=== PATIENT | male | born 1985 | race Caucasian/White ===

== ENCOUNTER 2016-05-15 14:44 | Emergency (ER) | payer OTHER ==
--- NOTE | 2016-05-15 15:43 | DIAGNOSTIC IMAGING REPORT ---
PROCEDURE: XR HAND 3 OR 4 VIEWS - RIGHT INDICATION: TRAUMA/INJURY TECHNIQUE: Three views of the right hand. COMPARISON: 10/05/2008 FINDINGS: Normal mineralization. No fractures. Interval healing of the fifth metacarpal base. Normal osseous alignment. No foreign bodies. Dystrophic ossification along the radial side of the second metacarpal head. No discrete articular space calcification. IMPRESSION: 1. Intact right hand. 2. Dystrophic soft tissue calcification along the second metacarpal head of uncertain etiology, likely post traumatic. 3. Healed fifth metacarpal base fracture.
--- NOTE | 2016-05-15 16:08 | ED NURSING NOTES ---
Clinical Report - Nurses [address] [place] [place] [address] 05/15/2016 14:44 [id number] TRI[facility] Triage time 14:58. Acuity: LEVEL 4. Chief Complaint: INJURY TO THE RIGHT INDEX FINGER (Pain and minor swelling, limited AROM. Unkown mechanism. Occured last night.). 15:00 05/15/16. SEPSIS SCREEN: Sepsis Screen. Negative (no infection suspected/documented). BIBIANA COMA SCORE: Bibiana Coma Scale: 15- eyes open spontaneously (4); best verbal response- oriented x 4 (5); best motor response- obeys commands (6). --15:03 Anoop Castellanos R.N. 14:58 05/15/16. BP: 121/70. HR: 72. RR: 16. O2 saturation: 96% on room air. Temp: 98.4 F (oral). Pain level now: 05/24. --15:03 Anoop Castellanos R.N. Weight: 61.6 kg stated. Height/Length: 66 inches Per Patient. BMI: 21.9. --15:00 Anoop Castellanos R.N. Medications None. --15:00 Anoop Castellanos R.N. Allergies NKDA. --15:00 Anoop Castellanos R.N. History Treatment FOREST PATHOLOGY ASSOCIATE PROFESSOR: None. PAST MEDICAL HX: Tetanus status: unknown. SOCIAL HX: Heavy tobacco smoker (cigarette)- less than 1 pack per day. Occasional alcohol use. No drug use. ABUSE ASSESSMENT: No report of abuse. --15:03 Anoop Castellanos R.N. PROBLEMS: Abdominal Pain. Gastritis. Alcohol Intoxication. --15:00 Anoop Castellanos R.N. ADDITIONAL SURGERIES: Adenoidectomy. Tumlor left chest wall. --15:00 Anoop Castellanos R.N. Interventions ID band on patient. To treatment room. --15:03 Anoop Castellanos R.N. PHYSICAL ASSESSMENT 15:06 05/15/16. Ambulatory to room. GENERAL / NEURO / PSYCH: Oriented X 4. Alert. Appears in no acute distress. EXTREMITIES: Limited ROM present. Capillary refill is less than 2 seconds in the extremities. Extremity pulses are within normal limits. Neuro-vascular status intact to the extremity. Right hand: tenderness and swelling (Right index finger). No deformity. SKIN: Skin intact. Skin is warm and dry. --15:06 Anoop Castellanos R.N. NURSING PROGRESS NOTES 15:06 05/15/16. Reassurance given. Two patient identifiers checked. Call light placed in reach. Bed placed in lowest position. Brakes of bed on. Patient ready for evaluation- chart flagged. --15:06 Anoop Castellanos R.N. DISPOSITION / DISCHARGE 16:20 05/15/16. Departure time: 1618. Condition at departure: unchanged and stable. No learning barriers present. Discharge instructions provided and reviewed with the patient. Reviewed medication(s). Patient verbalized understanding. Written instructions provided in Persian. The patient was discharged by the nurse practitioner. He was discharged home. He left the Emergency Department ambulatory and via private vehicle. Patient driving. --16:21 Anoop Castellanos R.N. Locked/Released at 05/15/2016 16:21 by Anoop Castellanos R.N.
--- NOTE | 2016-05-15 16:08 | ED NURSING NOTES ---
Clinical Report - Nurses [address] [place] [address] 05/15/2016 14:44 [id number] TRI[facility] Triage time 14:58. Acuity: LEVEL 4. Chief Complaint: INJURY TO THE RIGHT INDEX FINGER (Pain and minor swelling, limited AROM. Unkown mechanism. Occured last night.). 15:00 05/15/16. SEPSIS SCREEN: Sepsis Screen. Negative (no infection suspected/documented). BIBIANA COMA SCORE: Bibiana Coma Scale: 15- eyes open spontaneously (4); best verbal response- oriented x 4 (5); best motor response- obeys commands (6). --15:03 Anoop Castellanos R.N. 14:58 05/15/16. BP: 121/70. HR: 72. RR: 16. O2 saturation: 96% on room air. Temp: 98.4 F (oral). Pain level now: 05/24. --15:03 Anoop Castellanos R.N. Weight: 61.6 kg stated. Height/Length: 66 inches Per Patient. BMI: 21.9. --15:00 Anoop Castellanos R.N. Medications None. --15:00 Anoop Castellanos R.N. Allergies NKDA. --15:00 Anoop Castellanos R.N. History Treatment REPLENISHMENT ASSOCIATE: None. PAST MEDICAL HX: Tetanus status: unknown. SOCIAL HX: Heavy tobacco smoker (cigarette)- less than 1 pack per day. Occasional alcohol use. No drug use. ABUSE ASSESSMENT: No report of abuse. --15:03 Anoop Castellanos R.N. PROBLEMS: Abdominal Pain. Gastritis. Alcohol Intoxication. --15:00 Anoop Castellanos R.N. ADDITIONAL SURGERIES: Adenoidectomy. Tumlor left chest wall. --15:00 Anoop Castellanos R.N. Interventions ID band on patient. To treatment room. --15:03 Anoop Castellanos R.N. PHYSICAL ASSESSMENT 15:06 05/15/16. Ambulatory to room. GENERAL / NEURO / PSYCH: Oriented X 4. Alert. Appears in no acute distress. EXTREMITIES: Limited ROM present. Capillary refill is less than 2 seconds in the extremities. Extremity pulses are within normal limits. Neuro-vascular status intact to the extremity. Right hand: tenderness and swelling (Right index finger). No deformity. SKIN: Skin intact. Skin is warm and dry. --15:06 Anoop Castellanos R.N. NURSING PROGRESS NOTES 15:06 05/15/16. Reassurance given. Two patient identifiers checked. Call light placed in reach. Bed placed in lowest position. Brakes of bed on. Patient ready for evaluation- chart flagged. --15:06 Anoop Castellanos R.N. DISPOSITION / DISCHARGE 16:20 05/15/16. Departure time: 1618. Condition at departure: unchanged and stable. No learning barriers present. Discharge instructions provided and reviewed with the patient. Reviewed medication(s). Patient verbalized understanding. Written instructions provided in Slovak. The patient was discharged by the nurse practitioner. He was discharged home. He left the Emergency Department ambulatory and via private vehicle. Patient driving. --16:21 Anoop Castellanos R.N. Locked/Released at 05/15/2016 16:21 by Anoop Castellanos R.N.
--- NOTE | 2016-05-15 16:08 | ED ORDER SUMMARY ---
..... Patient: ANGELIC JENSEN OrderSheet [facility] VisitID: [id number] [address] [place] [address] 30y, M Registration Date/Time: 05/15/2016 ORDER SHEET Weight: 61.6 kg (stated) Allergies: NKDA GENERAL ORDERS: Hand 3 or 4V Right Urgent (15:11 05/15/2016 Jessica A.R.N.P.) (Ack 15:12 Shilpi) (16:03 Ewa) MEDICATION ORDERS: IV FLUIDS: ORDER SHEET NOTES: [Electronically signed by Anoop Castellanos R.N. (16:21 05/15/2016)] [Electronically signed by Sona BargerR.N.PKirk (16:24 05/15/2016)] [Electronically locked/signed by Anoop Castellanos R.N. (16:21 05/15/2016)]
--- NOTE | 2016-05-15 16:08 | ED ORDER SUMMARY ---
..... Patient: ANGELIC JENSEN OrderSheet [facility] VisitID: [id number] [address] [place] [address] 30y, M Registration Date/Time: 05/15/2016 ORDER SHEET Weight: 61.6 kg (stated) Allergies: NKDA GENERAL ORDERS: Hand 3 or 4V Right Urgent (15:11 05/15/2016 Jessica A.R.N.P.) (Ack 15:12 Shilpi) (16:03 Ewa) MEDICATION ORDERS: IV FLUIDS: ORDER SHEET NOTES: [Electronically signed by Anoop Castellanos R.N. (16:21 05/15/2016)] [Electronically signed by Sona BargerR.N.PKirk (16:24 05/15/2016)] [Electronically locked/signed by Anoop Castellanos R.N. (16:21 05/15/2016)]
--- NOTE | 2016-05-15 16:08 | ED CLINICAL REPORT ---
Clinical Report - Physicians/Mid Levels [facility] [address] [place] [address] 05/15/2016 14:44 [id number] Time Seen: 14:55; initial patient contact, initial documentation, patient care assumed. Arrived- By private vehicle. Historian- patient. HISTORY OF PRESENT ILLNESS Chief Complaint: Injury to the right index finger. The injury happened yesterday. Occurred at home. ( not sure what he did do to it). Patient is experiencing mild pain. Patient denies injury to the head or neck. No other injury. REVIEW OF SYSTEMS The patient has had swelling. No tingling, numbness, weakness or skin laceration. All systems otherwise negative, except as recorded above. PAST HISTORY See nurses notes. PROBLEMS: Abdominal Pain. Gastritis. Alcohol Intoxication. --15:00 Anoop Castellanos R.N. ADDITIONAL SURGERIES: Adenoidectomy. Tumlor left chest wall. --15:00 Anoop Castellanos R.N. The patient's dominant hand is the right. SOCIAL HISTORY Light tobacco smoker. Occasional alcohol use. No drug use. No recent travel. Is a local resident. FAMILY HISTORY No significant family medical history. ADDITIONAL NOTES The nursing notes have been reviewed with agreement regarding the chief complaint, HPI, ROS, PMH and patient medications and allergies. PHYSICAL EXAM Vital Signs: 05/15/2016 14:58 BP: 121/70. HR: 72. RR: 16. O2 saturation: 96%. Temp: 98.4 F. Pain level now: 10. Have been reviewed as normal and appear to be correct. Appearance: Alert. Oriented X3. No acute distress. Head: Head atraumatic. Eyes: Pupils equal, round and reactive to light. Eyes normal inspection. Respiratory: No respiratory distress. Skin: Skin warm and dry. Skin intact. Extremities: Right index finger: mild tenderness and swelling; limited movement (diminished flexion). Neurovascular intact distally. (slightly warm to touch and area around knuckle also warm, mildly swollen and tender). No erythema, laceration, abrasion, ecchymosis or puncture wound. No foreign body or deformity. No localization, subungual hematoma or amputation present. No wrist injury. No hand injury. Hand and wrist exam otherwise negative. Extremities otherwise negative. Neuro, Vascular and Tendons: Vascular status intact. Sensation intact. Motor intact. Tendon function intact. Neuro: Oriented X 3. No motor deficit. No sensory deficit. Note: isolated issue to finger. LABS, X-RAYS, AND EKG X-Rays: Right digit(s). Rt UE Digits X-ray: (IMPRESSION: 1. Intact right hand. 2. Dystrophic soft tissue calcification along the second metacarpal head of uncertain etiology, likely post traumatic. 3. Healed fifth metacarpal base fracture. Electronically Final signed by:Yolande Luu MD 05/15/2016 3:42:54 PM). The X-rays were interpreted by the radiologist and contemporaneously by me. PROGRESS AND PROCEDURES Patient counseled in person regarding the patient's stable condition, test results and diagnosis. 15:49 xrays shown. Differential Diagnosis: Other possible considerations: gout, ra, oa, cellulitis, fx, sprain, dislocation. Above considerations are based on history, physical exam, reassessment and X-Ray data. Differential diagnosis was discussed with patient. Disposition: Discharged home in good and unchanged condition (16:08). Condition: good and stable. 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 INSTRUCTIONS Warnings: GENERAL WARNINGS: Return or contact your physician immediately if your condition worsens or changes unexpectedly, if not improving as expected, or if other problems arise. Specifically return if problem worsens. Prescription Medications: Naproxen 500 mg tablets: take 1 orally every 12 hours as needed for pain. Dispense twenty (20). No refills. Colchicine 0.6 mg tablets: take 1 tablet orally every 1-2 hours as needed. Do not take more than 4mg in one day. Dispense twenty (20). No refills. Follow-up: Follow up with your doctor in about one week as needed. Call for an appointment. Summary of care provided to patient. Understanding of the discharge instructions verbalized by patient. (Electronically signed by Sona Barger A.R.NDarline 05/15/2016 16:24)
--- NOTE | 2016-05-15 16:24 | ED MAR SUMMARY ---
..... Medication Administration Record [facility] [address], [place] [id number] Patient: ANGELIC JENSEN Visit ID: [id number] 30y, M Weight: 61.6 kg Height/Length: 66 in BMI: 21.9 ALLERGIES: NKDA
--- NOTE | 2016-05-15 16:24 | ED MAR SUMMARY ---
..... Medication Administration Record [facility] [address], [place] [id number] Patient: ANGELIC JENSEN Visit ID: [id number] 30y, M Weight: 61.6 kg Height/Length: 66 in BMI: 21.9 ALLERGIES: NKDA
--- NOTE | 2016-05-15 16:24 | ED MED RECONCILIATION SUMMARY ---
Patient: ANGELIC JENSEN Medication Reconciliation Report [facility] VisitID: [id number] [address] [place] [address] 30y, M Registration Date/Time: 05/15/2016 Weight: 61.6 kg Height/Length: 66 in. BMI: 21.9 ALLERGIES: NKDA The patient's Home Medications are listed below: NONE. The source(s) of the original Home Medication information: Not obtained. The following Medications were given to the patient in the Emergency Department: None. The following Medications were prescribed to the patient: Naproxen 500 mg tablets: take 1 orally every 12 hours as needed for pain. Dispense twenty (20). No refills. -- Sona Barger A.R.N.P. Colchicine 0.6 mg tablets: take 1 tablet orally every 1-2 hours as needed. Do not take more than 4mg in one day. Dispense twenty (20). No refills. -- Sona Barger A.R.N.P.
--- NOTE | 2016-05-15 16:24 | ED MED RECONCILIATION SUMMARY ---
Patient: ANGELIC JENSEN Medication Reconciliation Report [facility] VisitID: [id number] [address] [place] [address] 30y, M Registration Date/Time: 05/15/2016 Weight: 61.6 kg Height/Length: 66 in. BMI: 21.9 ALLERGIES: NKDA The patient's Home Medications are listed below: NONE. The source(s) of the original Home Medication information: Not obtained. The following Medications were given to the patient in the Emergency Department: None. The following Medications were prescribed to the patient: Naproxen 500 mg tablets: take 1 orally every 12 hours as needed for pain. Dispense twenty (20). No refills. -- Sona Barger A.R.N.P. Colchicine 0.6 mg tablets: take 1 tablet orally every 1-2 hours as needed. Do not take more than 4mg in one day. Dispense twenty (20). No refills. -- Sona Barger A.R.N.P.
--- NOTE | 2016-05-15 16:24 | ED DISCHARGE INSTRUCTIONS ---
Patient: ANGELIC JENSEN General Instructions [facility] VisitID: [id number] [place] [address] 30y, M Registration Date/Time: 05/15/2016 Acute idiopathic gout with monarthritis involving the right hand. INSTRUCTIONS Warnings: GENERAL WARNINGS: Return or contact your physician immediately if your condition worsens or changes unexpectedly, if not improving as expected, or if other problems arise. Specifically return if problem worsens. Prescription Medications: Naproxen 500 mg tablets: take 1 orally every 12 hours as needed for pain. Dispense twenty (20). No refills. Colchicine 0.6 mg tablets: take 1 tablet orally every 1-2 hours as needed. Do not take more than 4mg in one day. Dispense twenty (20). No refills. Follow-up: Follow up with your doctor in about one week as needed. Call for an appointment. Summary of care provided to patient. Understanding of the discharge instructions verbalized by patient. ADDITIONAL INFORMATION Gout Gout or "gouty arthritis" is an inflammation of a joint due to a build-up of gout crystals in the joint fluid. This occurs when there is an excess uric acid (a normal waste product) in the body. Uric acid builds up in the body when the kidneys are unable to filter enough of it from the blood. This may occur with aging or kidney disease. Gout occurs more often in persons with obesity, diabetes, hypertension, high fats in the blood. It may be present in other family members. Alcohol and certain foods (such as shellfish and alcohol) may increase uric acid levels in the blood and cause a gout attack. Gout causes a hot, red, swollen and painful joint. If you have had one episode of gout, you are likely to have another. An acute attack of gout can be treated with anti-inflammatory and other medicine. If these attacks become frequent it may be necessary to take a daily medicine to help the kidney remove uric acid from the body. Home Care: Apply an ice pack (ice cubes in a plastic bag, wrapped in a towel) over the injured area for 20 minutes every 1-2 hours the first day for pain relief. Continue this 3-4 times a day until the pain and swelling goes away. Avoid alcohol and foods listed below (see Prevention) during a gout attack. Drink extra fluid to help flush the uric acid through your kidneys. Rest painful joints. If gout affects the joints of your foot or leg, you may want to use crutches for the first few days to keep from bearing weight on the foot or leg. Take anti-inflammatory medicine as directed. You may be prescribed Indocin (indomethacin), or [id number] drugs such as ibuprofen (Motrin, Advil) or naproxen (Naprosyn or Aleve). Tylenol will not be as effective since it is not an anti-inflammatory drug. If narcotic pain medicines have been prescribed, they should be used in addition to the anti-inflammatory drugs and only for severe pain. Avoid aspirin since this may slow down the flushing of the uric acid through your kidneys. Preventing Future Attacks: Minimize or avoid alcohol use. Excess alcohol intake can cause a gout attack. Foods high in purine form uric acid in the body and increase your risk for a gout attack. Therefore, avoid the following foods: certain seafoods (anchovies, sardines, shrimp, scallops, canales, mackerel); wild game, meat extracts and meat gravies; organ foods (kidney, liver, calf brain, sweetbreads). Avoid drinks with fructose (a type of sugar). Limit the following foods to one serving a day: red meat and pork, fish, poultry, dried beans and peas, asparagus, mushrooms, cauliflower and spinach. If you are overweight, this is a risk factor and you should talk to your doctor about a weight reduction plan. However, avoid fasting or extreme low calorie diets (less than 900 fernando/day) which will increase uric acid levels in the body. If you are diabetic or have high blood pressure, work with your doctor to achieve control of these conditions. Avoid injury to the involved joint since this can lead to a gout attack. Colchicine can be effective in stopping a gout attack. If you were given a prescription of this medicine for future use, begin it at the first sign of an attack. Colchicine may cause nausea, vomiting, diarrhea and other side effects. Follow Up with your doctor as advised or if you are not improving after three days of treatment. Get Prompt Medical Attention if any of the following occur: Fever over 100.4F (38.0C) with worsening joint pain Increasing redness around the joint Pain developing in another joint Repeated vomiting, abdominal pain, or blood in the vomit or stool (black or red color) Naproxen Sodium Oral tablet What is this medicine? NAPROXEN (na PROX en) is a non-steroidal anti-inflammatory drug (NSAID). It is used to reduce swelling and to treat pain. This medicine may be used for dental pain, headache, or painful monthly periods. It is also used for painful joint and muscular problems such as arthritis, tendinitis, bursitis, and gout. How should I use this medicine? Take this medicine by mouth with a glass of water. Follow the directions on the prescription label. Take it with food if your stomach gets upset. Try to not lie down for at least 10 minutes after you take it. Take your medicine at regular intervals. Do not take your medicine more often than directed. Long-term, continuous use may increase the risk of heart attack or stroke. A special MedGuide will be given to you by the pharmacist with each prescription and refill. Be sure to read this information carefully each time. Talk to your dinker regarding the use of this medicine in children. Special care may be needed. What side effects may I notice from receiving this medicine? Side effects that you should report to your doctor or health youth care specialist as soon as possible: black or bloody stools, blood in the urine or vomit blurred vision chest pain difficulty breathing or wheezing nausea or vomiting severe stomach pain skin rash, skin redness, blistering or peeling skin, hives, or itching slurred speech or weakness on one side of the body swelling of eyelids, throat, lips unexplained weight gain or swelling unusually weak or tired yellowing of eyes or skin Side effects that usually do not require medical attention (report to your doctor or health youth care specialist if they continue or are bothersome): constipation headache heartburn What may interact with this medicine? alcohol aspirin cidofovir diuretics lithium methotrexate other drugs for inflammation like ketorolac or prednisone pemetrexed probenecid warfarin What if I miss a dose? If you miss a dose, take it as soon as you can. If it is almost time for your next dose, take only that dose. Do not take double or extra doses. Where should I keep my medicine? Keep out of the reach of children. Store at room temperature between 15 and 30 degrees C (59 and 86 degrees F). Keep container tightly closed. Throw away any unused medicine after the expiration date. What should I tell my health care provider before I take this medicine? They need to know if you have any of these conditions: asthma cigarette smoker drink more than 3 alcohol containing drinks a day heart disease or circulation problems such as heart failure or leg edema (fluid retention) high blood pressure kidney disease liver disease stomach bleeding or ulcers an unusual or allergic reaction to naproxen, aspirin, other NSAIDs, other medicines, foods, dyes, or preservatives or trying to get breast-feeding What should I watch for while using this medicine? Tell your doctor or health youth care specialist if your pain does not get better. Talk to your doctor before taking another medicine for pain. Do not treat yourself. This medicine does not prevent heart attack or stroke. In fact, this medicine may increase the chance of a heart attack or stroke. The chance may increase with longer use of this medicine and in people who have heart disease. If you take aspirin to prevent heart attack or stroke, talk with your doctor or health youth care specialist. Do not take other medicines that contain aspirin, ibuprofen, or naproxen with this medicine. Side effects such as stomach upset, nausea, or ulcers may be more likely to occur. Many medicines available without a prescription should not be taken with this medicine. This medicine can cause ulcers and bleeding in the stomach and intestines at any time during treatment. Do not smoke cigarettes or drink alcohol. These increase irritation to your stomach and can make it more susceptible to damage from this medicine. Ulcers and bleeding can happen without warning symptoms and can cause . You may get drowsy or dizzy. Do not drive, use machinery, or do anything that needs mental alertness until you know how this medicine affects you. Do not stand or sit up quickly, especially if you are an older patient. This reduces the risk of dizzy or fainting spells. This medicine can cause you to bleed more easily. Try to avoid damage to your teeth and gums when you brush or floss your teeth. You have been given the following additional information: Gouty Arthritis Naproxen Sodium Oral tablet (Electronically signed by Sona Barger A.R.N.P. 05/15/2016 16:24)
== END 2016-05-15 16:18 | disposition home or self-care (01) ==
LOC: ED SRH 14:44
DX: M10.041 Idiopathic gout, right hand (principal); M13.141 Monoarthritis, not elsewhere classified, right hand; F17.210 Nicotine dependence, cigarettes, uncomplicated

== ENCOUNTER 2016-08-19 12:58 | Emergency (ER) | payer OTHER ==
--- NOTE | 2016-08-19 14:04 | ED ORDER SUMMARY ---
..... Patient: ANGELIC JENSEN OrderSheet [facility] VisitID: [id number] [place] [address] 31y, M Registration Date/Time: 08/19/2016 ORDER SHEET Weight: 63.5 kg (stated) Allergies: Ibuprofen GENERAL ORDERS: CBC w Diff Urgent (13:21 08/19/2016 EKoroleva P.A.-C) (Ack 13:28 KHoerner) (13:34 KHoerner) PT with INR Urgent (13:08/19/2016 EKoroleva P.A.-C) (Ack 13:28 KHoerner) (13:34 KHoerner) CMP Urgent (13:08/19/2016 EKoroleva P.A.-C) (Ack 13:28 KHoerner) (13:34 KHoerner) PTT Urgent (13:08/19/2016 EKoroleva P.A.-C) (Ack 13:28 KHoerner) (13:34 KHoerner) MEDICATION ORDERS: IV FLUIDS: ORDER SHEET NOTES: [Electronically signed by Iliana Ibarra R.N. (14:21 08/19/2016)] [Electronically signed by Margarita Spangler.A.-C (14:31 08/19/2016)] [Electronically locked/signed by Iliana Ibarra R.N. (14:21 08/19/2016)]
--- NOTE | 2016-08-19 14:04 | ED NURSING NOTES ---
Clinical Report - Nurses [facility] [address] [place] [address] 08/19/2016 13:00 [id number] TRIAGE Triage time 13:06. Acuity: LEVEL 3. Chief Complaint: RECTAL BLEED. Alert. No acute distress. BIBIANA COMA SCORE: Bibiana Coma Scale: 15- eyes open spontaneously (4); best verbal response- oriented x 4 (5); best motor response- obeys commands (6). --13:12 Iliana Ibarra R.N. 13:06 08/19/16. BP: 132/78. HR: 66. RR: 16. O2 saturation: 99% on room air. Temp: 98.1 F (oral). Pain level now: 10/24. --13:12 Iliana Ibarra R.N. Weight: 63.5 kg stated. Height/Length: 66 inches Per Patient. BMI: 22.6. --13:09 Iliana Ibarra R.N. Medications PARoxetine HCl Oral. --13:08 Iliana Ibarra R.N. Medication/allergy information source: the patient. --13:12 Iliana Ibarra R.N. Allergies Ibuprofen. --13:08 Iliana Ibarra R.N. History Arrived by private vehicle. Historian: patient. Unaccompanied. Primary physician (Flor). This started last night. ( bright red blood after using BR). SOCIAL HX: Heavy tobacco smoker- less than 1 pack per day. Occasional alcohol use. History of drug use: marijuana. FALL RISK ASSESSMENT: Fall risk assessment completed. No fall risk identified. FUNCTIONAL ASSESSMENT: Functional assessment: no impairments noted. LEARNING NEEDS ASSESSMENT: The learning needs assessment revealed no barriers. --13:12 Iliana Ibarra R.N. PROBLEMS: Rectal Bleed. Gout. Abdominal Pain. Gastritis. Immunizations. Alcohol Intoxication. --13:09 Iliana Ibarra R.N. ADDITIONAL SURGERIES: Adenoidectomy. Tumlor left chest wall. --13:09 Iliana Ibarra R.N. Assessment GENERAL / NEURO / PSYCH: Alert. Oriented X 4. Appears in no acute distress. Patient appears calm and cooperative. RESPIRATORY: Respirations not labored. SKIN: Skin is warm and dry. --13:12 Iliana Ibarra R.N. Interventions ID and allergy band on patient. To treatment room. --13:12 Iliana Ibarra R.N. PHYSICAL ASSESSMENT 13:15 08/19/16. Ambulatory to room. Patient gowned. GENERAL / NEURO / PSYCH: Alert. Oriented X 4. Appears in no acute distress. RESPIRATORY: Respirations not labored. SKIN: Skin is warm and dry. --13:15 Iliana Ibarra R.N. NURSING PROGRESS NOTES 13:16 08/19/16. Patient gowned. Head of bed elevated. Call light placed in reach. Side rails up x 1. Bed placed in lowest position. Brakes of bed on. --13:16 Iliana Ibarra R.N. Patient ID band checked. Blood samples drawn from the right antecubital space with 23g butterfly by [employer] ; labeled in presence of the patient and sent to lab: [employer] set. --13:36 Daniela Vasquez 14:10. The patient is resting quietly. Overall patient status is the same- he states feels the same. RESPIRATORY: No respiratory distress. SKIN: Skin is warm and dry. --14:18 Iliana Ibarra R.N. DISPOSITION / DISCHARGE Departure time: 1410. Condition at departure: stable. No learning barriers present. Discharge instructions provided and reviewed with the patient. Reviewed referral to a surgeon. Patient verbalized understanding. Written instructions provided in [place]. FALL RISK ASSESSMENT: Fall risk assessment completed. No fall risk identified. --14:17 Iliana Ibarra R.N. 14:15 08/19/16. BP: 136/83. HR: 61. RR: 16. O2 saturation: 95% on room air. Pain level now: 0/10. --14:17 Iliana Ibarra R.N. Locked/Released at 08/19/2016 14:21 by Iliana Ibarra R.N.
--- NOTE | 2016-08-19 14:04 | ED NURSING NOTES ---
Clinical Report - Nurses [facility] [address] [place] [address] 08/19/2016 13:00 [id number] TRI[facility] Triage time 13:06. Acuity: LEVEL 3. Chief Complaint: RECTAL BLEED. Alert. No acute distress. BIBIANA COMA SCORE: Bibiana Coma Scale: 15- eyes open spontaneously (4); best verbal response- oriented x 4 (5); best motor response- obeys commands (6). --13:12 Iliana Ibarra R.N. 13:06 08/19/16. BP: 132/78. HR: 66. RR: 16. O2 saturation: 99% on room air. Temp: 98.1 F (oral). Pain level now: 10/24. --13:12 Iliana Ibarra R.N. Weight: 63.5 kg stated. Height/Length: 66 inches Per Patient. BMI: 22.6. --13:09 Iliana Ibarra R.N. Medications PARoxetine HCl Oral. --13:08 Iliana Ibarra R.N. Medication/allergy information source: the patient. --13:12 Iliana Ibarra R.N. Allergies Ibuprofen. --13:08 Iliana Ibarra R.N. History Arrived by private vehicle. Historian: patient. Unaccompanied. Primary physician (Flor). This started last night. ( bright red blood after using BR). SOCIAL HX: Heavy tobacco smoker- less than 1 pack per day. Occasional alcohol use. History of drug use: marijuana. FALL RISK ASSESSMENT: Fall risk assessment completed. No fall risk identified. FUNCTIONAL ASSESSMENT: Functional assessment: no impairments noted. LEARNING NEEDS ASSESSMENT: The learning needs assessment revealed no barriers. --13:12 Iliana Ibarra R.N. PROBLEMS: Rectal Bleed. Gout. Abdominal Pain. Gastritis. Immunizations. Alcohol Intoxication. --13:09 Iliana Ibarra R.N. ADDITIONAL SURGERIES: Adenoidectomy. Tumlor left chest wall. --13:09 Iliana Ibarra R.N. Assessment GENERAL / NEURO / PSYCH: Alert. Oriented X 4. Appears in no acute distress. Patient appears calm and cooperative. RESPIRATORY: Respirations not labored. SKIN: Skin is warm and dry. --13:12 Iliana Ibarra R.N. Interventions ID and allergy band on patient. To treatment room. --13:12 Iliana Ibarra R.N. PHYSICAL ASSESSMENT 13:15 08/19/16. Ambulatory to room. Patient gowned. GENERAL / NEURO / PSYCH: Alert. Oriented X 4. Appears in no acute distress. RESPIRATORY: Respirations not labored. SKIN: Skin is warm and dry. --13:15 Iliana Ibarra R.N. NURSING PROGRESS NOTES 13:16 08/19/16. Patient gowned. Head of bed elevated. Call light placed in reach. Side rails up x 1. Bed placed in lowest position. Brakes of bed on. --13:16 Iliana Ibarra R.N. Patient ID band checked. Blood samples drawn from the right antecubital space with 23g butterfly by [employer] ; labeled in presence of the patient and sent to lab: Currently set. --13:36 Daniela Vasquez 14:10. The patient is resting quietly. Overall patient status is the same- he states feels the same. RESPIRATORY: No respiratory distress. SKIN: Skin is warm and dry. --14:18 Iliana Ibarra R.N. DISPOSITION / DISCHARGE Departure time: 1410. Condition at departure: stable. No learning barriers present. Discharge instructions provided and reviewed with the patient. Reviewed referral to a surgeon. Patient verbalized understanding. Written instructions provided in [place]. FALL RISK ASSESSMENT: Fall risk assessment completed. No fall risk identified. --14:17 Iliana Ibarra R.N. 14:15 08/19/16. BP: 136/83. HR: 61. RR: 16. O2 saturation: 95% on room air. Pain level now: 0/10. --14:17 Iliana Ibarra R.N. Locked/Released at 08/19/2016 14:21 by Iliana Ibarra R.N.
--- NOTE | 2016-08-19 14:04 | ED CLINICAL REPORT ---
Clinical Report - Physicians/Mid Levels [facility] [address] [place] [address] 08/19/2016 13:00 Patient: ANGELIC JENSEN Time Seen: 1300Jul 2016. Arrived- By private vehicle. Historian- patient. HISTORY OF PRESENT ILLNESS Chief Complaint: RECTAL BLEEDING. This started yesterday and is still present. (Patient reports bright red blood with bowel movements over the last 8 years, worsening over the last 2 days. Patient denies abdominal pain. Denies any history of requiring transfusion. Denies any recent foreign travel. Patient does report recent antibiotics for cellulitis. Patient has been seen with his primary care provider, is awaiting a referral for colonoscopy. Reports bowel movements are very on regular for him. Patient reports no sick contacts. No emesis. Patient is at times section after with female partners only. Denies history of IBS or Crohn's. Denies family history of IBS or Crohn's or ulcerative colitis.). REVIEW OF SYSTEMS No dizziness, fainting episodes or abnormal bleeding. All systems otherwise negative, except as recorded above. PAST HISTORY No history of hemorrhoids. Problems: Rectal Bleed. Gout. Abdominal Pain. Gastritis. Immunizations. Alcohol Intoxication. Additional Surgeries: Adenoidectomy. Tumlor left chest wall. Medications: PARoxetine HCl Oral. Allergies: Ibuprofen. SOCIAL HISTORY Current every day heavy tobacco smoker. Alcohol use. History of drug use: marijuana. ADDITIONAL NOTES The nursing notes have been reviewed. PHYSICAL EXAM Vital Signs: 08/19/2016 13:06 BP: 132/78. HR: 66. RR: 16. O2 saturation: 99%. Temp: 98.1 F. Pain level now: 9/10. Appearance: Alert. No acute distress. ENT: Nose normal. Pharynx normal. Neck: Normal inspection. No lymphadenopathy. CVS: Normal heart rate and rhythm. Respiratory: No respiratory distress. No decreased air movement. Abdomen: Soft and nontender. Bowel sounds normal. No rebound tenderness or distention. Rectal: Heme-positive stool. (POC test reference range: negative). Dark and light stool. No abnormal findings on digital exam or hemorrhoids. (chaperoned exam with Ti (RT), some mix of bright red blood in stool). Neuro: Oriented X 3. No motor deficit. LABS, X-RAYS, AND EKG Laboratory Tests: CBC w Diff: (ABIGAIL: 08/19/2016 12:15) ( [facility] 08/19/2016 13:52) Final results Test Result Flag Units (Reference) WHITE BLOOD COUNT 12.5 H K/uL (4.5-11.5) RED BLOOD COUNT 5.29 M/uL (4.50-5.90) HEMOGLOBIN 16.9 gm/dL (13.5-17.5) HEMATOCRIT 49.5 % (41.0-53.0) MEAN CELL VOLUME 94 fL (80-100) MEAN CORPUSCULAR HGB 32 pg (26-34) MEAN CORPUSCULAR HGB CONC 34 g/dL (31-37) RED CELL DISTRIBUTION WIDTH 13.9 % (11.6-14.8) PLATELET COUNT 307 K/uL (150-400) NEUTROPHIL % 66.4 % (50-75) LYMPH % 23.9 L % (25-40) MONO % 8.0 % (3-14) EOSINOPHIL % 1.0 % (0-4) BASOPHIL % 0.7 % (0-2) PT with INR: (ABIGAIL: 08/19/2016 12:15) ( [facility] 08/19/2016 13:55) Final results Test Result Flag Units (Reference) INR 0.9 (0.8-1.2) Low Intensity Therapy: INR 1.5-2.0 PT range 18.5-23.1Mod.Intensity Therapy: INR 2.0-3.0 PT range 23.1-31.5High Intensity Therapy: INR 2.5-3.5 PT range 27.4-35.5High Intensity Therapy 2: INR 3.0-4.0 PT range 31.5-39.3 APTT 27 SECONDS (24-34) CMP: (ABIGAIL: 08/19/2016 12:15) ( [facility] 08/19/2016 14:08) Final results Test Result Flag Units (Reference) GLUCOSE 82 mg/dL (70-110) BUN 16 mg/dL (7-18) CREATININE 1.2 mg/dL (0.6-1.3) Estimated GFR >60 mL/min Estimated GFR- >60 mL/min Note: Persistent reduction over 3 months in eGFR<60 mL/min/1.73 m2 defines CKD. Patients with eGFR values>=60 mL/min/1.73 m2 may also have CKD if evidence ofpersistent proteinuria. Additional information may be foundat www.kidney.org. SODIUM 142 mmol/L (136-145) POTASSIUM 4.2 mmol/L (3.5-5.1) CHLORIDE 105 mmol/L (98-107) CARBON DIOXIDE 29 mmol/L (21-32) CALCIUM 8.8 mg/dL (8.5-10.1) TOTAL PROTEIN 7.3 g/dL (6.4-8.2) ALBUMIN 3.7 g/dL (3.3-5.0) BILIRUBIN, TOTAL 0.4 mg/dL (0.0-1.0) ALKALINE PHOSPHATASE 50 U/L (46-116) AST (SGOT) 22 U/L (15-37) ALT (SGPT) 23 U/L (12-78) . PROGRESS AND PROCEDURES Course of Care: Patient in the emergency department with no distress, some hematochezia noted with bright red stool. Patient with a soft abdomen, history of similar, urged to follow up with his primary care provider or outpatient. She will likely need a colonoscopy, as this has continued to occur. NO signs of surgical abdomen. Patient is stable. Symptoms better. Patient/family counseled. Disposition: Discharged. CLINICAL IMPRESSION Rectal bleed consisting of bright red blood. INSTRUCTIONS Drink plenty of fluids. (high fiber diet your labs look great). Follow-up with: Haroon Smith MD, General Surgeon, , [facility], [address] [facility] [address], [place], [address] Follow up. Call for the next available appointment. (Electronically signed by Margarita Spangler P.A.-C 08/19/2016 14:31)
--- NOTE | 2016-08-19 14:04 | ED ORDER SUMMARY ---
..... Patient: ANGELIC JENSEN OrderSheet [facility] VisitID: [id number] [place] [address] 31y, M Registration Date/Time: 08/19/2016 ORDER SHEET Weight: 63.5 kg (stated) Allergies: Ibuprofen GENERAL ORDERS: CBC w Diff Urgent (13:21 08/19/2016 EKoroleva P.A.-C) (Ack 13:28 KHoerner) (13:34 KHoerner) PT with INR Urgent (13:08/19/2016 EKoroleva P.A.-C) (Ack 13:28 KHoerner) (13:34 KHoerner) CMP Urgent (13:08/19/2016 EKoroleva P.A.-C) (Ack 13:28 KHoerner) (13:34 KHoerner) PTT Urgent (13:08/19/2016 EKoroleva P.A.-C) (Ack 13:28 KHoerner) (13:34 KHoerner) MEDICATION ORDERS: IV FLUIDS: ORDER SHEET NOTES: [Electronically signed by Iliana Ibarra R.N. (14:21 08/19/2016)] [Electronically signed by Margarita Spangler.A.-C (14:31 08/19/2016)] [Electronically locked/signed by Iliana Ibarra R.N. (14:21 08/19/2016)]
--- NOTE | 2016-08-19 14:04 | ED CLINICAL REPORT ---
Clinical Report - Physicians/Mid Levels [facility] [address] [place] [address] 08/19/2016 13:00 Patient: ANGELIC JNESEN Time Seen: 1300Jul 2016. Arrived- By private vehicle. Historian- patient. HISTORY OF PRESENT ILLNESS Chief Complaint: RECTAL BLEEDING. This started yesterday and is still present. (Patient reports bright red blood with bowel movements over the last 8 years, worsening over the last 2 days. Patient denies abdominal pain. Denies any history of requiring transfusion. Denies any recent foreign travel. Patient does report recent antibiotics for cellulitis. Patient has been seen with his primary care provider, is awaiting a referral for colonoscopy. Reports bowel movements are very on regular for him. Patient reports no sick contacts. No emesis. Patient is at times section after with female partners only. Denies history of IBS or Crohn's. Denies family history of IBS or Crohn's or ulcerative colitis.). REVIEW OF SYSTEMS No dizziness, fainting episodes or abnormal bleeding. All systems otherwise negative, except as recorded above. PAST HISTORY No history of hemorrhoids. Problems: Rectal Bleed. Gout. Abdominal Pain. Gastritis. Immunizations. Alcohol Intoxication. Additional Surgeries: Adenoidectomy. Tumlor left chest wall. Medications: PARoxetine HCl Oral. Allergies: Ibuprofen. SOCIAL HISTORY Current every day heavy tobacco smoker. Alcohol use. History of drug use: marijuana. ADDITIONAL NOTES The nursing notes have been reviewed. PHYSICAL EXAM Vital Signs: 08/19/2016 13:06 BP: 132/78. HR: 66. RR: 16. O2 saturation: 99%. Temp: 98.1 F. Pain level now: 9/10. Appearance: Alert. No acute distress. ENT: Nose normal. Pharynx normal. Neck: Normal inspection. No lymphadenopathy. CVS: Normal heart rate and rhythm. Respiratory: No respiratory distress. No decreased air movement. Abdomen: Soft and nontender. Bowel sounds normal. No rebound tenderness or distention. Rectal: Heme-positive stool. (POC test reference range: negative). Dark and light stool. No abnormal findings on digital exam or hemorrhoids. (chaperoned exam with Ti (RT), some mix of bright red blood in stool). Neuro: Oriented X 3. No motor deficit. LABS, X-RAYS, AND EKG Laboratory Tests: CBC w Diff: (ABIGAIL: 08/19/2016 12:15) ( [facility] 08/19/2016 13:52) Final results Test Result Flag Units (Reference) WHITE BLOOD COUNT 12.5 H K/uL (4.5-11.5) RED BLOOD COUNT 5.29 M/uL (4.50-5.90) HEMOGLOBIN 16.9 gm/dL (13.5-17.5) HEMATOCRIT 49.5 % (41.0-53.0) MEAN CELL VOLUME 94 fL (80-100) MEAN CORPUSCULAR HGB 32 pg (26-34) MEAN CORPUSCULAR HGB CONC 34 g/dL (31-37) RED CELL DISTRIBUTION WIDTH 13.9 % (11.6-14.8) PLATELET COUNT 307 K/uL (150-400) NEUTROPHIL % 66.4 % (50-75) LYMPH % 23.9 L % (25-40) MONO % 8.0 % (3-14) EOSINOPHIL % 1.0 % (0-4) BASOPHIL % 0.7 % (0-2) PT with INR: (ABIGAIL: 08/19/2016 12:15) ( [facility] 08/19/2016 13:55) Final results Test Result Flag Units (Reference) INR 0.9 (0.8-1.2) Low Intensity Therapy: INR 1.5-2.0 PT range 18.5-23.1Mod.Intensity Therapy: INR 2.0-3.0 PT range 23.1-31.5High Intensity Therapy: INR 2.5-3.5 PT range 27.4-35.5High Intensity Therapy 2: INR 3.0-4.0 PT range 31.5-39.3 APTT 27 SECONDS (24-34) CMP: (ABIGAIL: 08/19/2016 12:15) ( [facility] 08/19/2016 14:08) Final results Test Result Flag Units (Reference) GLUCOSE 82 mg/dL (70-110) BUN 16 mg/dL (7-18) CREATININE 1.2 mg/dL (0.6-1.3) Estimated GFR >60 mL/min Estimated GFR- >60 mL/min Note: Persistent reduction over 3 months in eGFR<60 mL/min/1.73 m2 defines CKD. Patients with eGFR values>=60 mL/min/1.73 m2 may also have CKD if evidence ofpersistent proteinuria. Additional information may be foundat www.kidney.org. SODIUM 142 mmol/L (136-145) POTASSIUM 4.2 mmol/L (3.5-5.1) CHLORIDE 105 mmol/L (98-107) CARBON DIOXIDE 29 mmol/L (21-32) CALCIUM 8.8 mg/dL (8.5-10.1) TOTAL PROTEIN 7.3 g/dL (6.4-8.2) ALBUMIN 3.7 g/dL (3.3-5.0) BILIRUBIN, TOTAL 0.4 mg/dL (0.0-1.0) ALKALINE PHOSPHATASE 50 U/L (46-116) AST (SGOT) 22 U/L (15-37) ALT (SGPT) 23 U/L (12-78) . PROGRESS AND PROCEDURES Course of Care: Patient in the emergency department with no distress, some hematochezia noted with bright red stool. Patient with a soft abdomen, history of similar, urged to follow up with his primary care provider or outpatient. She will likely need a colonoscopy, as this has continued to occur. NO signs of surgical abdomen. Patient is stable. Symptoms better. Patient/family counseled. Disposition: Discharged. CLINICAL IMPRESSION Rectal bleed consisting of bright red blood. INSTRUCTIONS Drink plenty of fluids. (high fiber diet your labs look great). Follow-up with: Haroon Smith MD, General Surgeon, , [facility], [address] [facility] [address], [place], [address] Follow up. Call for the next available appointment. (Electronically signed by Margarita Spangler P.A.-C 08/19/2016 14:31)
--- NOTE | 2016-08-19 14:31 | ED MED RECONCILIATION SUMMARY ---
Patient: NAGELIC JENSEN Medication Reconciliation Report [facility] VisitID: [id number] [address] [place] [address] 31y, M Registration Date/Time: 08/19/2016 Weight: 63.5 kg Height/Length: 66 in. BMI: 22.6 ALLERGIES: Ibuprofen The patient's Home Medications are listed below: THE FOLLOWING MEDICATIONS NEED TO BE RECONCILED: PARoxetine HCl Oral The source(s) of the original Home Medication information: patient The following Medications were given to the patient in the Emergency Department: None. The following Medications were prescribed to the patient: None.
--- NOTE | 2016-08-19 14:31 | ED DISCHARGE INSTRUCTIONS ---
Patient: ANGELIC JENSEN General Instructions [facility] VisitID: [id number] [address] [id number] 31y, M Registration Date/Time: 08/19/2016 Rectal bleed consisting of bright red blood. INSTRUCTIONS Drink plenty of fluids. (high fiber diet your labs look great). Follow-up with: Haroon Smith MD, General Surgeon, , [facility], [address] [place] [address] [address], [place], [address] Follow up. Call for the next available appointment. ADDITIONAL INFORMATION Rectal Bleeding (Stable) Your exam today shows signs of blood in the stool. This is called rectal bleeding, because the blood passes through the rectum. However, the blood may not be coming from the rectum. Blood in the stool may be red or black in color. Red blood in the stool usually comes from the lower gastro-intestinal (GI) tract. This may be due to diverticulosis, polyps, colon inflammation or infection, anal fissure or hemorrhoids. In persons over 50 tumors and cancer of the intestinal tract may first show up as red blood in the stool. Upper GI bleeding causes the stool to turn black. This may occur with bleeding from the esophagus, stomach, duodenum or small intestine. Very small amounts of GI bleeding may not be visible and can only be discovered on a chemical test of the stool. You have not lost a large amount of blood and your condition appears stable at this time. It is very important to have a follow-up exam to determine the exact cause of your bleeding. Home Care: 1) You may resume normal activity as long as you feel well. 2) Avoid aspirin and anti-inflammatory drugs such as ibuprofen (Advil, Motrin) and naproxen (Aleve and Naprosyn). You may use acetaminophen (Tylenol) for pain. [ NOTE : If you have chronic liver disease, talk with your doctor before using acetaminophen.] 3) Avoid alcohol. Follow Up with your doctor or as advised by our medical staff. It is very important that you have further tests done to find the cause of your bleeding. Get Prompt Medical Attention if any of the following occur: -- Large amount of rectal bleeding (more than 1 cup of blood in 24 hours) -- Increasing abdominal pain -- Weakness, dizziness or fainting -- Vomiting blood (red or black color) You have been given the following additional information: Rectal Bleed, Stable (Electronically signed by Margarita Spangler P.A.-C 08/19/2016 14:31)
--- NOTE | 2016-08-19 14:31 | ED DISCHARGE INSTRUCTIONS ---
Patient: ANGELIC JENSEN General Instructions [facility] VisitID: [id number] [place] [id number] 31y, M Registration Date/Time: 08/19/2016 Rectal bleed consisting of bright red blood. INSTRUCTIONS Drink plenty of fluids. (high fiber diet your labs look great). Follow-up with: Haroon Smith MD, General Surgeon, , [facility], [address] [place] [address] [address], [place], [id number] Follow up. Call for the next available appointment. ADDITIONAL INFORMATION Rectal Bleeding (Stable) Your exam today shows signs of blood in the stool. This is called rectal bleeding, because the blood passes through the rectum. However, the blood may not be coming from the rectum. Blood in the stool may be red or black in color. Red blood in the stool usually comes from the lower gastro-intestinal (GI) tract. This may be due to diverticulosis, polyps, colon inflammation or infection, anal fissure or hemorrhoids. In persons over 50 tumors and cancer of the intestinal tract may first show up as red blood in the stool. Upper GI bleeding causes the stool to turn black. This may occur with bleeding from the esophagus, stomach, duodenum or small intestine. Very small amounts of GI bleeding may not be visible and can only be discovered on a chemical test of the stool. You have not lost a large amount of blood and your condition appears stable at this time. It is very important to have a follow-up exam to determine the exact cause of your bleeding. Home Care: 1) You may resume normal activity as long as you feel well. 2) Avoid aspirin and anti-inflammatory drugs such as ibuprofen (Advil, Motrin) and naproxen (Aleve and Naprosyn). You may use acetaminophen (Tylenol) for pain. [ NOTE : If you have chronic liver disease, talk with your doctor before using acetaminophen.] 3) Avoid alcohol. Follow Up with your doctor or as advised by our medical staff. It is very important that you have further tests done to find the cause of your bleeding. Get Prompt Medical Attention if any of the following occur: -- Large amount of rectal bleeding (more than 1 cup of blood in 24 hours) -- Increasing abdominal pain -- Weakness, dizziness or fainting -- Vomiting blood (red or black color) You have been given the following additional information: Rectal Bleed, Stable (Electronically signed by Margarita Spangler P.A.-C 08/19/2016 14:31)
--- NOTE | 2016-08-19 14:31 | ED MAR SUMMARY ---
..... Medication Administration Record [facility] [address] [place], [place] [id number] Patient: ANGELIC JENSEN Visit ID: [id number] 31y, M Weight: 63.5 kg Height/Length: 66 in BMI: 22.6 ALLERGIES: Ibuprofen
--- NOTE | 2016-08-19 14:31 | ED MED RECONCILIATION SUMMARY ---
Patient: ANGELIC JENSEN Medication Reconciliation Report [facility] VisitID: [id number] [address] [place] [address] 31y, M Registration Date/Time: 08/19/2016 Weight: 63.5 kg Height/Length: 66 in. BMI: 22.6 ALLERGIES: Ibuprofen The patient's Home Medications are listed below: THE FOLLOWING MEDICATIONS NEED TO BE RECONCILED: PARoxetine HCl Oral The source(s) of the original Home Medication information: patient The following Medications were given to the patient in the Emergency Department: None. The following Medications were prescribed to the patient: None.
--- NOTE | 2016-08-19 14:31 | ED MAR SUMMARY ---
..... Medication Administration Record [facility] [address] [place], [place] [id number] Patient: ANGELIC JENSEN Visit ID: [id number] 31y, M Weight: 63.5 kg Height/Length: 66 in BMI: 22.6 ALLERGIES: Ibuprofen
== END 2016-08-19 14:10 | disposition home or self-care (01) ==
LOC: ED SRH 12:58
DX: K62.5 Hemorrhage of anus and rectum (principal); F17.210 Nicotine dependence, cigarettes, uncomplicated; F12.10 Cannabis abuse, uncomplicated
CPT/HCPCS: 90074; 90100; 94001; 94060; 95059